=== PATIENT | female | born 1990 | race Caucasian/White ===

== ENCOUNTER 2018-09-23 16:57 | Outpatient (REF) | payer SELFPAY ==
--- NOTE | 2018-09-23 16:30 | PAPFT_PTH ---
PAT[facility]: [id number] AGE/SX: 27/F ROOM: RE09/23/[address]: Richard Ram : 1990 BED: DIS: 09/23/2018 SPEC #: [id number] RECD: 09/23/18 18:21 STATUS: FAMILIA REAneta #: [id number] OCTAVIA: 09/23/18 16:[address]: Richard Ram DEPT: [facility] Cytology RECD BY: Meg Arambula ENTERED: 09/23/18 18:21 SP TYPE: PAPFT OTHR DR: Trav Sharp Tissues: 1 - CX/ENDOCX FOR PAP SMEARS Procedures: PAP THIN PREP/[facility] Screening HPV DNA PROBE Comments: [id number]
[2018-09-25 14:05] LABS: Chlamydia Result Negative; GC Result Negative; Specimen Description CERVIX
== END 2018-09-23 17:17 ==
LOC: NCHCN 16:57
PROVIDERS: PCP Physician Assistant; Visit Provider Internal Medicine
DX: Z00.00 Encounter for general adult medical examination without abnormal findings (principal); Z11.3 Encounter for screening for infections with a predominantly sexual mode of transmission; Z12.4 Encounter for screening for malignant neoplasm of cervix; Z11.51 Encounter for screening for human papillomavirus (HPV); Z01.419 Encounter for gynecological examination (general) (routine) without abnormal findings
CPT/HCPCS: 87491; 87591; 88142; 87624

== ENCOUNTER 2020-12-10 10:24 | Outpatient (REF) | payer SELFPAY ==
[2020-12-13 11:47] LABS: ALT 25 U/L (14-59); CREATININE 0.8 mg/dL (0.55-1.02); TSH 1.83 uIU/mL (0.36-3.74)
[2020-12-14 16:47] LABS: Calculated LDL 97 mg/dL (<100); Cholesterol 193 mg/dL (<200); HDL Cholesterol 83 mg/dL (40-60); Triglyceride 66 mg/dL (<150)
== END 2020-12-10 10:25 | disposition home or self-care (01) ==
LOC: NCHCN 10:24
PROVIDERS: PCP Physician Assistant; Visit Provider Internal Medicine
DX: G40.209 Localization-related (focal) (partial) symptomatic epilepsy and epileptic syndromes with complex partial seizures, not intractable, without status epilepticus (principal); Z00.00 Encounter for general adult medical examination without abnormal findings
CPT/HCPCS: 80061; 82565; 84443; 84460

== ENCOUNTER 2021-10-06 18:27 | Outpatient (REF) | payer BC, SELFPAY ==
--- NOTE | 2021-10-06 16:00 | PAPFT_PTH ---
PATIENT: Maira Ayers LOC: [facility]#:[id number] AGE/SX: 30/F ROOM: RE10/06/[address]: Priscila Fletcher : 1990 BED: DIS: 10/06/2021 SPEC #: [id number] RECD: 10/07/21 12:47 STATUS: FAMILIA REQ #: [id number] OCTAVIA: 10/06/21 16:[address]: Dolores Fletcher DEPT: [facility] Cytology RECD BY: Meg Arambula ENTERED: 10/07/21 12:47 SP TYPE: PAPFT OTHR DR: Trav Sharp Tissues: 1 - CX/ENDOCX FOR PAP SMEARS Procedures: PAP THIN PREP/[facility] Screening HPV DNA PROBE Comments: [id number]
== END 2021-10-06 18:28 | disposition home or self-care (01) ==
LOC: NCHCN 18:27
PROVIDERS: PCP Physician Assistant; Visit Provider Nurse Practitioner Family
DX: Z12.4 Encounter for screening for malignant neoplasm of cervix (principal); Z11.51 Encounter for screening for human papillomavirus (HPV)
CPT/HCPCS: 88142; 87624

== ENCOUNTER 2024-07-16 13:23 | Outpatient (REF) | payer SELFPAY ==
[2024-07-16 22:02] LABS: HCT 43.3 % (36.0-46.0); HGB 14.8 g/dL (11.2-15.7); MCH 31.4 pg (27.0-33.0); MCHC 34.2 % (32.0-36.0); MCV 92 fL (80-95); MPV 9.7 fL (8.0-11.0); Platelet Count 300 10^3/uL (130-400); RBC 4.71 10^6/uL (3.93-5.22); RDW 11.9 % (11.7-14.6); RDW-SD 39.9 fL; WBC 8.75 10^3/uL (4.4-10.8)
[2024-07-16 22:36] LABS: ALT 16 U/L (14-59); AST 17 U/L (15-37); Albumin 4.4 g/dL (3.4-5.0); Alkaline Phosphatase 53 U/L (46-116); Anion Gap 11.4 mmol/L (3-11); BUN 8 mg/dL (7-18); Bilirubin, Total 0.48 mg/dL (0.2-1.0); CO2 24.6 mmol/L (21.0-32.0); Calcium 9.3 mg/dL (8.5-10.1); Chloride 104 mmol/L (98-107); Estimated GFR 76.29 (mL/min/1.73m2); Glucose 100 mg/dL (74-106); Potassium 4.4 mmol/L (3.5-5.1); Sodium 140 mmol/L (136-145); TSH 1.41 uIU/mL (0.36-3.74); Total Protein 7.8 g/dL (6.4-8.2)
== END 2024-07-16 13:24 | disposition home or self-care (01) ==
LOC: NCHCN 13:23
PROVIDERS: PCP Physician Assistant; Visit Provider Internal Medicine
DX: G40.109 Localization-related (focal) (partial) symptomatic epilepsy and epileptic syndromes with simple partial seizures, not intractable, without status epilepticus (principal)
CPT/HCPCS: 80053; 85027; 84443

== ENCOUNTER 2024-12-17 17:37 | Outpatient (REF) | payer OTHER, SELFPAY ==
[2024-12-19 09:36] LABS: HIV-1/2 Ag & Ab Screen Negative (Negative)
[2024-12-19 10:22] LABS: Hepatitis C Ab w Rflx HCV PCR Negative (Negative)
== END 2024-12-17 17:38 | disposition home or self-care (01) ==
LOC: NCHCN 17:37
PROVIDERS: PCP Physician Assistant; Visit Provider Internal Medicine
DX: Z11.4 Encounter for screening for human immunodeficiency virus [HIV] (principal)
CPT/HCPCS: 86803; 87389

== ENCOUNTER 2024-12-18 08:07 | Outpatient (REF) | payer OTHER, SELFPAY ==
--- NOTE | 2024-12-17 16:00 | PAPFT_PTH ---
PATIENT: Maira Ayers LOC: [facility]#:[id number] AGE/SX: 34/F ROOM: RE12/18/[address]: Richard Ram : 1990 BED: DIS: 12/18/2024 SPEC #: [id number] RECD: 12/18/24 12:47 STATUS: FAMILIA REAneta #: [id number] OCTAVIA: 12/17/24 16:[address]: Richard Ram DEPT: [facility] Cytology RECD BY: Meg Arambula ENTERED: 12/18/24 12:48 SP TYPE: PAPFT OTHR DR: Trav Sharp Tissues: 1 - CX/ENDOCX FOR PAP SMEARS Procedures: PAP THIN PREP/[facility] Screening HPV DNA PROBE Comments: [id number] (HPV 16 & 18/45)
== END 2024-12-18 08:08 | disposition home or self-care (01) ==
LOC: NCHCN 08:07
PROVIDERS: PCP Physician Assistant; Visit Provider Internal Medicine
DX: Z12.4 Encounter for screening for malignant neoplasm of cervix (principal); Z01.419 Encounter for gynecological examination (general) (routine) without abnormal findings
CPT/HCPCS: 88142; 87624